=== PATIENT | male | born 1995 | race American Indian/Alaskan Native ===

== ENCOUNTER 2021-11-10 20:42 | Emergency (ER) | payer SELFPAY ==
[2021-11-10] MEDS ORDERED: MORPHINE 4 MG/1 ML INJ IV ONE ×2 (20:48→20:49)
[2021-11-10] MEDS ORDERED: TETANUS,DIPH,PERTUSS(ACELL) VACCINE 0.5 ML SYRINGE IM ONE (20:48)
[2021-11-10] MEDS ORDERED: ONDANSETRON 4 MG/2 ML INJ IV ONE (20:49)
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
[2021-11-10] MEDS ORDERED: HYDROmorphone 1 MG/1 ML INJ IV ONE (22:33)
[2021-11-11 01:00] VITALS: BP 127/75
== END 2021-11-11 01:00 | disposition short-term general hospital (02) ==
LOC: ED 20:42
DX: S61.230A Puncture wound without foreign body of right index finger without damage to nail, initial encounter (principal); S61.232A Puncture wound without foreign body of right middle finger without damage to nail, initial encounter; S61.234A Puncture wound without foreign body of right ring finger without damage to nail, initial encounter; W34.09XA Accidental discharge from other specified firearms, initial encounter; Y93.89 Activity, other specified; Y92.89 Other specified places as the place of occurrence of the external cause; Y99.8 Other external cause status
CPT/HCPCS: 73120; 90471; 90715; 96365; 96375; 99285; J0690; J1170; J2270; J2405